=== PATIENT | male | born 1945 | race Caucasian/White ===

== ENCOUNTER 2018-02-03 22:11 | Emergency (ER) | payer MEDICARE ==
[~2018-02-03] VITALS: Ht 180.3 cm; Wt 96.9 kg
[2018-02-03 22:16] VITALS: BP 195/92; PULSE 66; RESP 18; TEMP 98.1; O2SAT 98
[2018-02-03] MEDS ORDERED: ASPI-516 CHEW (22:45)
[2018-02-03] MEDS ORDERED: OXYB5TAB8 PO (22:45)
[2018-02-03] MEDS ORDERED: LISI40TA PO (22:45)
[2018-02-03] MEDS ORDERED: SODIUM CHLORIDE 0.9% FLUSH 10 ML FLUSH IVF PRN (23:00)
[2018-02-03 23:19] VITALS: O2SAT 97
--- NOTE | 2018-02-03 23:23 | RADRPT ---
EXAM DATE/TIME: 02/03/2018 22:58 [facility] COMPARISON: No previous studies available for comparison. INDICATIONS : Chest discomfort, hypertension. MEDICAL HISTORY : Hypertension. Carcinoma, lung. SURGICAL HISTORY : Lobectomy. ENCOUNTER: Initial ACUITY: 1 day PAIN SCORE: 3/10 LOCATION: Right lower chest FINDINGS: A single view of the chest demonstrates a postsurgical changes right upper lobe with some volume loss . Cardiomegaly. Left lung clear. The cardiomediastinal contours are unremarkable. Osseous structures are intact. CONCLUSION: Postsurgical changes right lung. No acute cardiopulmonary disease. Dustin Appiah MD on February 03, 2018 at 23:21 Board Certified Radiologist. This report was verified electronically.
[2018-02-03 23:35] VITALS: BP 164/92; PULSE 75; RESP 18; O2SAT 97
--- NOTE | 2018-02-03 23:36 | RADRPT ---
EXAM DATE/TIME: 02/03/2018 23:17 [facility] COMPARISON: No previous studies available for comparison. INDICATIONS : Hypertension. Cephalgia. RADIATION DOSE: 57.24 CTDIvol (mGy) MEDICAL HISTORY : Cardiovascular disease. Carcinoma, lung. Carcinoma, bladder. SURGICAL HISTORY : Lobectomy. ENCOUNTER: Initial ACUITY: 1 day PAIN SCALE: 7/10 LOCATION: cranial TECHNIQUE: Multiple contiguous axial images were obtained of the head. Using automated exposure control and adj ustment of the mA and/or kV according to patient size, radiation dose was kept as low as reasonably a chievable to obtain optimal diagnostic quality images. DICOM format image data is available electro nically for review and comparison. FINDINGS: CEREBRUM: The ventricles are normal for age. Small calcification right frontal lobe. No evidence of midline ariana ft, mass lesion, hemorrhage or acute infarction. No extra-axial fluid collections are seen. POSTERIOR FOSSA: The cerebellum and brainstem are intact. The 4th ventricle is midline. The cerebellopontine angle i s unremarkable. EXTRACRANIAL: The visualized portion of the orbits is intact. SKULL: The calvaria is intact. No evidence of skull fracture. CONCLUSION: 1. No acute intracranial abnormality. 2. 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 Outpatient cont rasted MRI recommended. Dustin Appiah MD on February 03, 2018 at 23:32 Board Certified Radiologist. This report was verified electronically.
--- NOTE | 2018-02-03 23:41 | PD ---
HPI Chief Complaint: Hypertension Time Seen by Provider: 22:47 Travel History International Travel<30 days: No Contact w/Intl Traveler<30days: No Traveled to known affect area: No History of Present Illness HPI Patient is a 72-year-old male with a history of high blood pressure presents emergency department for evaluation of mild headache bifrontal as well as elevated blood pressure readings. Patient states his been feeling somewhat fatigued as well but no chest pain no shortness of breath no decreased urination. Patient states his been taking his blood pressure medication as prescribed, primary care physician is [place] and he is visiting down here for the next few months. States symptoms are mild, context as above, associated signs symptoms as above, duration is about an hour. Denies the worst headache of his life, denies any thunderclap presentation. PFSH Past Medical History Cancer: Yes (lung, bladder) Cardiovascular Problems: Yes Diminished Hearing: No Hypertension: Yes Musculoskeletal: Yes Tetanus Vaccination: Unknown Influenza Vaccination: Yes Past Surgical History Joint Replacement: Yes (lt knee) Thoracic Surgery: Yes (rt lobectomy, lung ca) Tonsillectomy: Yes Social History Alcohol Use: No Tobacco Use: No Substance Use: No Allergies-Medications (Allergen,Severity, Reaction): Coded Allergies: Penicillins (Verified Allergy, Severe, Rash, 02/03/18) Sulfa (Sulfonamide Antibiotics) (Verified Allergy, Unknown, 02/03/18) UNKNOWN Reported Meds & Prescriptions Reported Meds & Active Scripts Active Reported Aspirin 81 Mg Chew 81 Mg CHEW DAILY Ditropan (Oxybutynin Chloride) 5 Mg Tab 5 Mg PO Q12HR Lisinopril 40 Mg Tab 40 Mg PO DAILY Review of Systems Except as stated in HPI: all other systems reviewed are Neg Physical Exam Narrative GENERAL: Well-developed well-nourished, quite pleasant in no obvious distress SKIN: Focused skin assessment warm/dry. HEAD: Atraumatic. Normocephalic. EYES: Pupils equal and round. No scleral icterus. No injection or drainage. ENT: No nasal bleeding or discharge. Mucous membranes pink and moist. NECK: Trachea midline. No JVD. No nuchal rigidity, Kernig's and Brudzinski signs negative CARDIOVASCULAR: Regular rate and rhythm. No murmur appreciated. RESPIRATORY: No accessory muscle use. Clear to auscultation. Breath sounds equal bilaterally. GASTROINTESTINAL: Abdomen soft, non-tender, nondistended. Hepatic and splenic margins not palpable. MUSCULOSKELETAL: No obvious deformities. No clubbing. No cyanosis. No edema. NEUROLOGICAL: Awake and alert. Cranial nerves II through XII are grossly intact and nonfocal, 5 out of 5 strength in all 4 extremities PSYCHIATRIC: Appropriate mood and affect; insight and judgment normal. Data Data Last Documented VS Vital Signs Date Time Temp Pulse Resp B/P (MAP) Pulse Ox O2 Delivery O2 Flow Rate FiO2 02/04/18 00:35 74 18 97 02/04/18 00:29 Room Air 02/03/18 22:16 98.1 Orders Orders Electrocardiogram (02/03/18 22:55) Complete Blood Count With Diff (02/03/18 22:55) Comprehensive Metabolic Panel (02/03/18 22:55) Magnesium (Mg) (02/03/18 22:55) Prothrombin Time / Inr (Pt) (02/03/18 22:55) Act Partial Throm Time (Ptt) (02/03/18 22:55) Troponin I (02/03/18 22:55) Chest, Single Ap (02/03/18 22:55) Ecg Monitoring (02/03/18 22:55) Iv Access Insert/Monitor (02/03/18 22:55) Oximetry (02/03/18 22:55) Oxygen Administration (02/03/18 22:55) Sodium Chloride 0.9% Flush (Ns Flush) (02/03/18 23:00) Ct Brain W/O Iv Contrast(Rout) (02/03/18 ) Ed Discharge Order (02/04/18 00:22) Labs Laboratory Tests Test 02/03/18 23:35 White Blood Count 7.6 TH/MM3 Red Blood Count 5.02 MIL/MM3 Hemoglobin 15.4 GM/DL Hematocrit 45.7 % Mean Corpuscular Volume 90.9 FL Mean Corpuscular Hemoglobin 30.7 PG Mean Corpuscular Hemoglobin Concent 33.8 % Red Cell Distribution Width 13.1 % Platelet Count 240 TH/MM3 Mean Platelet Volume 8.3 FL Neutrophils (%) (Auto) 55.0 % Lymphocytes (%) (Auto) 30.4 % Monocytes (%) (Auto) 6.8 % Eosinophils (%) (Auto) 6.8 % Basophils (%) (Auto) 1.0 % Neutrophils # (Auto) 4.2 TH/MM3 Lymphocytes # (Auto) 2.3 TH/MM3 Monocytes # (Auto) 0.5 TH/MM3 Eosinophils # (Auto) 0.5 TH/MM3 Basophils # (Auto) 0.1 TH/MM3 CBC Comment DIFF FINAL Differential Comment Prothrombin Time 11.1 SEC Prothromb Time International Ratio 1.1 RATIO Activated Partial Thromboplast Time 25.7 SEC Blood Urea Nitrogen 19 MG/DL Creatinine 1.20 MG/DL Random Glucose 100 MG/DL Total Protein 7.3 GM/DL Albumin 3.6 GM/DL Calcium Level 8.4 MG/DL Magnesium Level 2.2 MG/DL Alkaline Phosphatase 155 U/L Aspartate Amino Transf (AST/SGOT) 28 U/L Alanine Aminotransferase (ALT/SGPT) 28 U/L Total Bilirubin 0.5 MG/DL Sodium Level 140 MEQ/L Potassium Level 3.8 MEQ/L Chloride Level 106 MEQ/L Carbon Dioxide Level 27.6 MEQ/L Anion Gap 6 MEQ/L Estimat Glomerular Filtration Rate 60 ML/MIN Troponin I LESS THAN 0.02 NG/ML MDM Medical Decision Making Medical Screen Exam Complete: Yes Emergency Medical Condition: Yes Differential Diagnosis Asymptomatic elevated blood pressure, migraine headache, cluster headache, intracranial pathology highly unlikely peer Narrative Course Patient 72-year-old male with a complex surgical history secondary to history of lung cancer presents emergency department with mild headache and elevated blood pressure. Initial workup in the emergency department basic labs chest x- ray and CT of his head are negative, patient's blood pressure initially 195/92, he states it was higher in the 210 region systolic prior to arrival. Without intervention his blood pressure now down to 162/90. There is no indication for the lowering of his blood pressure at this time, encouraged to continue his blood pressure medication follow-up with his primary care physician. He is stable for discharge Diagnosis Primary Impression: Headache Additional Impression: Elevated blood pressure reading Patient Instructions: Chronic Hypertension (DC), General Instructions, How to Take a Blood Pressure (DC) Disposition: 01 DISCHARGE HOME Condition: Stable Robert Castillo MD Feb 03, 2018 23:41
[2018-02-03 23:54] LABS: AUTOMATED NEUTROPHIL # 4.2 TH/MM3 (1.8-7.7); BASOPHIL # 0.1 TH/MM3 (0-0.2); EOSINOPHIL # 0.5 TH/MM3 (0-0.4); EOSINOPHIL % 6.8 % (0.0-4.0); HEMATOCRIT 45.7 % (39.0-51.0); HEMOGLOBIN 15.4 GM/DL (13.0-17.0); LYMPH % 30.4 % (9.0-44.0); LYMPHOCYTE # 2.3 TH/MM3 (1.0-4.8); MEAN CELL VOLUME 90.9 FL (80.0-100.0); MEAN CORPUSCULAR HEMOGLOBIN 30.7 PG (27.0-34.0); MEAN CORPUSCULAR HGB CONC 33.8 % (32.0-36.0); MEAN PLATELET VOLUME 8.3 FL (7.0-11.0); MONO % 6.8 % (0.0-8.0); MONOCYTE # 0.5 TH/MM3 (0-0.9); PLATELET COUNT 240 TH/MM3 (150-450); RED BLOOD COUNT 5.02 MIL/MM3 (4.50-5.90); RED CELL DISTRIBUTION WIDTH 13.1 % (11.6-17.2); WHITE BLOOD COUNT 7.6 TH/MM3 (4.0-11.0)
[2018-02-04 00:02] LABS: CHLORIDE 106 MEQ/L (98-107); SODIUM (NA) 140 MEQ/L (136-145)
[2018-02-04 00:05] LABS: ALBUMIN 3.6 GM/DL (3.4-5.0); BICARBONATE 27.6 MEQ/L (21.0-32.0); CALCIUM 8.4 MG/DL (8.5-10.1); GLUCOSE,RANDOM 100 MG/DL (74-106); MAGNESIUM 2.2 MG/DL (1.5-2.5)
[2018-02-04 00:06] LABS: BLOOD UREA NITROGEN 19 MG/DL (7-18)
[2018-02-04 00:09] LABS: ALT (GPT) 28 U/L (12-78); AST (GOT) 28 U/L (15-37); GLOMERULAR FILTRATION RATE 60 ML/MIN (>89)
[2018-02-04 00:10] LABS: TOTAL BILIRUBIN ADULT 0.5 MG/DL (0.2-1.0); TOTAL PROTEIN 7.3 GM/DL (6.4-8.2)
[2018-02-04 00:11] LABS: ALKALINE PHOSPHATASE 155 U/L (45-117)
[2018-02-04 00:14] LABS: TROPONIN I LESS THAN 0.02 NG/ML (0.02-0.05)
[2018-02-04 00:18] LABS: INTERNATIONAL NORMALIZED RATIO 1.1 RATIO; PROTHROMBIN TIME - PATIENT 11.1 SEC (9.8-11.6)
[2018-02-04 00:29] VITALS: BP 162/90; PULSE 74; RESP 18; O2SAT 97
--- NOTE | 2018-02-04 07:38 | EKG ---
Date Performed: 02/03/2018 Time Performed: 23:13:49 PTAGE: 72 years EKG: Sinus rhythm WITH OCCASIONAL VENTRICULAR PREMATURE COMPLEXES WITH OCCASIONAL SUPRAVENTRICULAR PREMATURE COMPLEXES POSSIBLE LEFT ATRIAL ENLARGEMENT RIGHT BUNDLE BRANCH BLOCK LEFT ANTERIOR FASCICULAR BLOCK Nonspecifi c T wave changes ABNORMAL ECG NO PREVIOUS TRACING DOCTOR: Antony Lema Interpretating Date/Time 02/04/2018 07:37:42
== END 2018-02-04 00:41 | disposition home or self-care (01) ==
LOC: PHED 22:11
DX: R51 Headache (principal); I10 Essential (primary) hypertension; I49.3 Ventricular premature depolarization; I45.2 Bifascicular block; R94.31 Abnormal electrocardiogram [ECG] [EKG]; Z85.118 Personal history of other malignant neoplasm of bronchus and lung; Z85.51 Personal history of malignant neoplasm of bladder
CPT/HCPCS: 70450; 71045; 80053; 83735; 84484; 85025; 85610; 85730; 93005; 99285